=== PATIENT | female | born 1950 | race American Indian/Alaskan Native ===

== ENCOUNTER 2021-07-11 08:00 | Outpatient (CLI) | payer OTHER | END 2021-07-11 08:30 | disposition home or self-care (01) | LOC: PPH VACUNA 08:00 | DX: Z23 Encounter for immunization (principal) ==

== ENCOUNTER 2022-02-09 08:00 | Outpatient (CLI) | payer OTHER | END 2022-02-09 08:30 | disposition home or self-care (01) | LOC: PPH VACUNA 08:00 | PROVIDERS: ATTEND Emergency Medicine Pediatric Emergency Medicine | DX: Z23 Encounter for immunization (principal) ==

== ENCOUNTER 2022-09-19 06:32 | Day surgery (SDC) | payer OTHER ==
[~2022-09-19] VITALS: Ht 160 cm; Wt 76.2 kg
[~2022-09-19 06:32] MED LIST: IRBESARTAN-HCT1 EAC1 PO; LIPITOR40 MG PO; METFORMIN HCL500 M3 PO; TAMOXIFEN CITRA20 MG PO
== END 2022-09-19 15:15 | disposition home or self-care (01) ==
LOC: CIR.AMB 06:32
PROVIDERS: ATTEND Obstetrics & Gynecology
DX: N90.7 Vulvar cyst (principal); Z20.822 Contact with and (suspected) exposure to COVID-19; I10 Essential (primary) hypertension; Z87.891 Personal history of nicotine dependence